=== PATIENT | male | born 1995 | race African-American/Black ===

== ENCOUNTER 2018-12-04 11:40 | Emergency (ER) | payer SELFPAY ==
[~2018-12-04] VITALS: Ht 185.4 cm; Wt 134.1 kg
[2018-12-04 11:45] VITALS: BP 147/80; TEMP 97.6
[2018-12-04 12:04] LABS: COLLECTION METHOD CLEAN CATCH
[2018-12-04 12:11] LABS: PH 8 (5-8); SQUAMOUS EPITHELIAL 0-2 /hpf; URINE APPEARANCE Clear; URINE BACTERIA None Seen /hpf; URINE BILIRUBIN Negative (NEGATIVE); URINE BLOOD Negative (NEGATIVE); URINE COLOR Yellow; URINE GLUCOSE Negative (NEGATIVE); URINE KETONE Negative (NEGATIVE); URINE LEUKOCYTE ESTERASE Negative (NEGATIVE); URINE NITRATE Negative (NEGATIVE); URINE PROTEIN(semi-quant) Negative (NEGATIVE); URINE RBC 0-2 /hpf
[2018-12-04 13:36] VITALS: PULSE 92
== END 2018-12-04 13:37 | disposition home or self-care (01) ==
LOC: COL.ER 11:40
PROVIDERS: Emergency Medicine
DX: N34.2 Other urethritis (principal)
CPT/HCPCS: J0696

== ENCOUNTER 2019-04-30 10:32 | Emergency (ER) | payer SELFPAY ==
[~2019-04-30] VITALS: Ht 185.4 cm; Wt 136.4 kg
[2019-04-30 11:09] VITALS: BP 133/81; TEMP 99
[2019-04-30 15:19] VITALS: PULSE 93
== END 2019-04-30 15:19 | disposition home or self-care (01) ==
LOC: COL.ER 10:32
DX: J40 Bronchitis, not specified as acute or chronic (principal); F17.210 Nicotine dependence, cigarettes, uncomplicated